=== PATIENT | male | born 1970 | race Caucasian/White ===

== ENCOUNTER → 2021-03-26 | Outpatient (CLI) | payer OTHER | LOC: LBRF 17:03 | DX: D23.22 Other benign neoplasm of skin of left ear and external auricular canal (principal); L91.8 Other hypertrophic disorders of the skin ==

== ENCOUNTER 2021-04-14 20:30 | Emergency (ER) | payer OTHER ==
[2021-04-14 22:55] LABS: HEMOGLOBIN 15.9 gm/dl (14.0-17.5); RED BLOOD COUNT 5.12 M/UL (4.20-5.50); WHITE BLOOD COUNT 6.4 K/UL (4.5-11.0)
[2021-04-14] MEDS ORDERED: PROAIR HFA8.5 GM INH (23:33)
[2021-04-14] MEDS ORDERED: AUGMENTIN 875-1 EACH PO (23:33)
== END 2021-04-15 00:42 | disposition home or self-care (01) ==
LOC: ER1 20:30
PROVIDERS: Physician Assistant
DX: U07.1 COVID-19 (principal); J40 Bronchitis, not specified as acute or chronic; E86.0 Dehydration; E87.6 Hypokalemia; H66.93 Otitis media, unspecified, bilateral; E11.9 Type 2 diabetes mellitus without complications; I10 Essential (primary) hypertension; Z88.5 Allergy status to narcotic agent
CPT/HCPCS: 0240U; 71045; 80053; 85025; 87081; 87880; 93005; 99284

== ENCOUNTER → 2021-04-17 | Outpatient (CLI) | payer OTHER ==
[~2021-04-17] VITALS: Ht 177.8 cm; Wt 122.5 kg
[~2021-04-17] MED LIST: AUGMENTIN 875-1 EACH PO; PROAIR HFA8.5 GM INH
== END ==
LOC: EROP 12:06
DX: U07.1 COVID-19 (principal); Z23 Encounter for immunization; E11.9 Type 2 diabetes mellitus without complications; I10 Essential (primary) hypertension
CPT/HCPCS: M0247; Q0247